=== PATIENT | female | born 1980 | race Asian ===

== ENCOUNTER 2020-08-18 00:23 | Emergency (ER) | payer OTHER ==
[~2020-08-18] VITALS: Ht 160 cm; Wt 52.2 kg
[2020-08-18 00:30] VITALS: Ht 160 cm; Wt 52.2 kg
[2020-08-18 01:08] LABS: BASOPHIL % 0.9 % (0.2-1.3); PLATELET COUNT 251 x10^3mcL (179-408); RED CELL DISTRIBUTION WIDTH 14.5 % (12.3-17.7)
[2020-08-18 01:12] LABS: CALCIUM 9.3 mg/dL (8.5-10.1); CARBON DIOXIDE 25.3 mmol/L (21-32); CHLORIDE SERUM 100 mmol/L (98-107); CREATININE SERUM 0.7 mg/dL (0.6-1.0); GFR1 > 60 mL/min; GLUCOSE SERUM 98 mg/dL (74-106); POTASSIUM SERUM 3.2 mmol/L (3.5-5.1); SODIUM SERUM 127 mmol/L (136-145)
[2020-08-18 01:13] LABS: rbc morphology (normal/abnorm) NORMAL (NORMAL)
[2020-08-18 01:17] LABS: ALKALINE PHOSPHATASE 60 U/L (46-116); ALT/SGPT 33 U/L (14-59); AST/SGOT 16 U/L (15-37); BILIRUBIN TOTAL 0.4 mg/dL (0.20-1.00); LIPASE 253 IU/L (73-393); TOTAL PROTEIN, SERUM 7.5 g/dL (6.4-8.2)
[2020-08-18 03:13] VITALS: BP 133/68
== END 2020-08-18 03:40 | disposition home or self-care (01) ==
LOC: ED 00:23
PROVIDERS: Student in an Organized Health Care Education/Training Program
DX: R10.815 Periumbilic abdominal tenderness (principal); R11.2 Nausea with vomiting, unspecified; E87.6 Hypokalemia; E87.1 Hypo-osmolality and hyponatremia
CPT/HCPCS: J1885; J2270; J2405; J7030; Q9967